=== PATIENT | female | born 1965 | race Asian ===

== ENCOUNTER 2020-09-30 22:57 | Emergency (ER) | payer SELFPAY ==
[~2020-09-30] VITALS: Ht 165.1 cm; Wt 90.7 kg
[2020-09-30 23:10] VITALS: BP 153/104
[2020-09-30] MEDS ORDERED: ONDANSETRON 4 MG TAB.RAPDIS ONE (23:42)
[2020-09-30] MEDS ORDERED: HYDROCODONE/APAP 5/325MG TABLET ONE (23:42)
[2020-09-30] MEDS: BACI/NEOM/POLY B OINT PKT 1 UDPKT PACKET TP ONE (23:48)
[2020-09-30] MEDS: HYDROCODONE/APAP 5/325MG TABLET PO ONE (23:48)
[2020-09-30] MEDS: ONDANSETRON 4 MG TAB.RAPDIS SL ONE (23:48)
[2020-10-01] MEDS ORDERED: HYDR-4209 PO (00:36)
[2020-10-01] MEDS ORDERED: NEOM28.37 TP (00:36)
[2020-10-01] MEDS ORDERED: TDAP [DIPH/PERTUSSIS/TET] 0.5 ML VIAL IM ONE (00:50)
[2020-10-01] MEDS: TDAP [DIPH/PERTUSSIS/TET] 0.5 ML VIAL IM ONE (01:24)
--- NOTE | 2020-10-01 01:24 | NUR ---
Patient discharged to home in stable condition. Written and verbal after care instructions given. Patient verbalizes understanding of instruction.
== END 2020-10-01 01:45 | disposition home or self-care (01) ==
LOC: ER 22:57
DX: S50.812A Abrasion of left forearm, initial encounter (principal); J45.909 Unspecified asthma, uncomplicated; V49.49XA Driver injured in collision with other motor vehicles in traffic accident, initial encounter; Y93.89 Activity, other specified; Y92.413 State road as the place of occurrence of the external cause; Y99.8 Other external cause status
CPT/HCPCS: 73060; 73090; 73130; 90471; 90715; 99284; Q0162